=== PATIENT | male | born 1945 | race Caucasian/White ===

== ENCOUNTER 2022-11-02 14:58 | Outpatient (CLI) | payer MEDICARE, SELFPAY ==
--- NOTE | ~2022-11-02 | MR_ITS ---
EXAMINATION: MR abdomen wo/w con INDICATION: Renal mass TECHNIQUE: Coronal SSFSE ARC, WATER:coronal LAVA-FLEX, Coronal 2D FIESTA FatSat, Axial SSFSE BH ARC, Axial 3D DualEcho BH, Axial SSFSE-IR, Axial DWI b=500, Axial 2D FIESTA FatSat, pre and dynamic postco ntrast Axial LAVA ARC, postcontrast Coronal In and Opposed phase LAVA FLEX COMPARISON: None available CONTRAST: Multihance, 20 cc FINDINGS: Cysts of the liver measure up to 2.6 cm in the left hepatic lobe. The spleen, pancreas, gal lbladder, and adrenal glands are normal. There is a 7.2 x 5.5 cm irregular, exophytic mass of the rig ht kidney lower pole. The mass demonstrates central T2 signal hyperintensity. There is a thick rind o f tissue surrounding central T2 hyperintensity which demonstrates heterogeneous enhancement after con trast administration. Enhancing soft tissue extends laterally and posteriorly into the perirenal fat. A component of enhancing soft tissue at least abuts the descending colon. No distinct fat plane is s een in this area between the colon and soft tissue density. There are hemorrhagic cysts of the right kidney measuring 1.9 cm and 0.4 cm. There are hemorrhagic cysts of the left kidney measuring up to 1 cm. There is a 1.8 cm proteinaceous cyst of the right kidney lower pole.There are no pathologically e nlarged abdominal lymph nodes. No dilated loops of bowel are present. IMPRESSION: 1. Complex left kidney mass suspicious for necrotic malignancy. Differential includes abscess. Recomm end biopsy and clinical correlation for infection. The mass at least abuts the descending colon and c olonic involvement is not excluded. Reviewed, dictated and finalized at location [facility]. IMPRESSION: 1. Complex left kidney mass suspicious for necrotic malignancy. Differential in cludes abscess. Recommend biopsy and clinical correlation for infection. The ma ss at least abuts the descending colon and colonic involvement is not excluded.
== END 2022-11-02 14:59 | disposition home or self-care (01) ==
LOC: ANHIMG 15:08
PROVIDERS: PCP Family Medicine
DX: N28.89 Other specified disorders of kidney and ureter (principal)
CPT/HCPCS: 74183; A9577

== ENCOUNTER → 2022-11-15 07:49 | Outpatient (CLI) | payer MEDICARE, SELFPAY ==
--- NOTE | ~2022-11-15 | CT_ITS ---
Clinical Indication: Renal mass CT Scan of the Chest with Contrast: Technique: Contiguous sections were acquired throughout the chest prior to and following intravenous administration of 75 cc of Omnipaque 350. Dose reduction technique was used on this scan by utilizing automated exposure control and iterative reconstruction technique. The dose-length product (DLP) was 1115.60 mGy-cm. Findings: There is no evidence of any significant mediastinal, hilar or axillary lymphadenopathy. There is no f illing defect in the pulmonary arterial tree to suggest pulmonary embolus. There is no evidence of ao rtic dissection or aneurysm. Calcified right hilar lymph nodes are present. There are extensive coron sunny artery calcifications. There is no evidence of pleural or pericardial effusion. The lungs are clear. No pulmonary nodules or infiltrates are noted. Images through the upper abdomen reveal several hepatic cysts. Impression: No evidence of pulmonary embolus, aortic dissection, or aortic aneurysm. Clear lungs. Kidneys are not included in the [id number] on this exam. Reviewed, dictated and finalized at [facility]. Impression: No evidence of pulmonary embolus, aortic dissection, or aortic aneurysm. Clear lungs. Kidneys are not included in the [id number] on this exam.
[2022-11-15 08:22] LABS: Estimated Glomerular Filt Rate 46
== END ==
PROVIDERS: PCP Family Medicine; Visit Provider Urology
DX: N28.89 Other specified disorders of kidney and ureter (principal)
CPT/HCPCS: 71270; Q9967